=== PATIENT | female | born 1950 | race Caucasian/White ===

== ENCOUNTER 2017-07-02 07:37 | Day surgery (SDC) | payer MEDICARE, BC ==
[~2017-07-02 07:37] MED LIST: FAMOTIDINE 20MG TABLET PO ONE; MECLIZINE 25 MG TABLET PO ONE; METOCLOPRAMIDE 10 MG TABLET PO ONE
[2017-07-02] MEDS ORDERED: DEXAMETHASONE PRESERVATIVE FREE 10MG/ML VIAL IV ONE (07:38)
[2017-07-02] MEDS ORDERED: LIDOCAINE 2% MDV (20MG/ML) 20ML VIAL IV ONE (07:38)
[2017-07-02] MEDS ORDERED: MIDAZOLAM HCL 2MG/2ML VIAL IV ONE (07:38)
[2017-07-02] MEDS ORDERED: LIDOCAINE 1% W/EPI 1:200,000 MPF 30ML SQ ONE (07:38)
[2017-07-02] MEDS ORDERED: FENTANYL PF 100MCG/2ML VIAL IV ONE (07:38)
[2017-07-02] MEDS ORDERED: PROPOFOL 10 MG/ML VIAL IV ONE (07:38)
[2017-07-02] MEDS ORDERED: BUPIVACAINE 0.75% W/EPI MPF 30ML VIAL IVP ONE (07:38)
--- NOTE | 2017-07-02 15:52 | Operative Note - [place] ---
DATE OF SURGERY: 07/02/17 PREOPERATIVE DIAGNOSIS: CERVICAL SPONDYLOSIS WITHOUT MYELOPATHY, ICD-10 CODE = M47.812. OPERATION: RADIOFREQUENCY RHIZOTOMY LEFT CERVICAL FACETS 2-3, 3-4, AND 4 -5. SURGEON: ADA YEN D.O. ANESTHESIA: LOCAL SEDATION. ANESTHESIA PROVIDER: ALBINO COOPER CRNA. PRIMARY CARE PHYSICIAN: DR. SIN INDICATION: This patient presents with primary neck pain. Examination shows tenderness in the cervical spine. Range of motion does cause pain to the neck with extension. Diagnostics show diffuse multiple levels of spondylosis. PROCEDURE: Intravenous line, vital sign monitoring, IV sedation, prepped, draped, sterile technique. Cervical facet levels in the area of pain on the left were identified and marked at 2-3, 3-4, and 4-5. Each one of these points on the skin infiltrated. A 22-gauge rhizotomy cannula positioned. Stimulation trials conducted. Rhizotomy burn performed. Local with anti-inflammatory into the sites. Topical antibiotics. Sterile dressing applied. We will monitor and evaluate. cc: Dr. Sin JOB NUMBER: [id number]
== END 2017-07-02 09:40 | disposition home or self-care (01) ==
LOC: SUR 07:37
PROVIDERS: ATTEND Pain Medicine Interventional Pain Medicine
DX: M47.812 Spondylosis without myelopathy or radiculopathy, cervical region (principal)
CPT/HCPCS: 64633; 64634 ×2; 01936; J1100; J3010; J3490